=== PATIENT | female | born 1990 | race African-American/Black ===

== ENCOUNTER 2017-12-20 16:35 | Emergency (ER) | payer MEDICAID, OTHER ==
[~2017-12-20] VITALS: Ht 170.2 cm; Wt 75.1 kg
[2017-12-20 16:57] VITALS: BP 120/51
[2017-12-20 17:17] LABS: CLARITY URINE CLEAR (CLEAR); COLOR URINE YELLOW (YELLOW); KETONES URINE NEGATIVE (NEGATIVE); LEUKOCYTE ESTERASE URINE TRACE (NEGATIVE); NITRITE URINE NEGATIVE (NEGATIVE); OCCULT BLOOD URINE NEGATIVE (NEGATIVE); PROTEIN URINE NEGATIVE (NEGATIVE); SPECIFIC GRAVITY URINE 1.017 (1.005-1.030); UROBILINOGEN URINE 0.2 E.U./dL (0.2-1.0)
== END 2017-12-21 | disposition left against medical advice (07) ==
LOC: ER 19:27
DX: R10.30 Lower abdominal pain, unspecified (principal); R11.0 Nausea
CPT/HCPCS: 36415; 81003; 81025; 99283

== ENCOUNTER 2019-03-23 16:23 | Observation (INO) | payer OTHER ==
[~2019-03-23] VITALS: Ht 170.2 cm; Wt 83.5 kg
[2019-03-23 17:44] LABS: CLARITY URINE CLEAR (CLEAR); COLOR URINE YELLOW (YELLOW); KETONES URINE NEGATIVE (NEGATIVE); LEUKOCYTE ESTERASE URINE 2+ (NEGATIVE); NITRITE URINE NEGATIVE (NEGATIVE); OCCULT BLOOD URINE NEGATIVE (NEGATIVE); PH URINE 7.5 (4.5-8.0); PROTEIN URINE NEGATIVE (NEGATIVE); SPECIFIC GRAVITY URINE 1.012 (1.005-1.030); UROBILINOGEN URINE 0.2 E.U./dL (0.2-1.0)
== END 2019-03-23 18:16 | disposition home or self-care (01) ==
LOC: 8 EST LDRP 16:23
PROVIDERS: ADMIT Obstetrics & Gynecology; ATTEND Obstetrics & Gynecology
DX: O26.892 Other specified pregnancy related conditions, second trimester (principal); R10.9 Unspecified abdominal pain; O62.9 Abnormality of forces of labor, unspecified; Z3A.27 27 weeks gestation of pregnancy
CPT/HCPCS: 81003; 99281; G0378